=== PATIENT | female | born 1955 | race Caucasian/White ===

== ENCOUNTER 2020-06-03 12:00 | Emergency (ER) | payer OTHER ==
[~2020-06-03] VITALS: Ht 172.7 cm; Wt 97.5 kg
[2020-06-03 12:05] VITALS: Ht 172.7 cm; Wt 97.5 kg
[2020-06-03 12:23] LABS: BASOPHIL % 0.3 % (0.2-1.3); PLATELET COUNT 225 x10^3mcL (179-408); RED CELL DISTRIBUTION WIDTH 13.7 % (12.3-17.7)
[2020-06-03 12:33] LABS: CARBON DIOXIDE 28.6 mmol/L (21-32); CHLORIDE SERUM 103 mmol/L (98-107); CREATININE SERUM 0.8 mg/dL (0.6-1.0); GFR1 > 60 mL/min; GLUCOSE SERUM 118 mg/dL (74-106); POTASSIUM SERUM 3.6 mmol/L (3.5-5.1); SODIUM SERUM 137 mmol/L (136-145)
[2020-06-03 12:35] LABS: UA SPECIFIC GRAVITY 1.025 (1.005-1.035); microscopic required? YES; urine erythrocyte 3+ (NEGATIVE)
[2020-06-03 12:40] LABS: ALBUMIN 3.7 g/dL (3.4-5.0); ALKALINE PHOSPHATASE 85 U/L (46-116); ALT/SGPT 21 U/L (14-59); AMYLASE 34 U/L (25-115); AST/SGOT 17 U/L (15-37); BILIRUBIN TOTAL 0.5 mg/dL (0.20-1.00); LIPASE 70 IU/L (73-393); TOTAL PROTEIN, SERUM 7.3 g/dL (6.4-8.2)
[2020-06-03 12:51] LABS: AMPHETAMINE QUAL UR NONE DETECTED (See below)
[2020-06-03] MEDS ORDERED: ZOF4 PO (14:55)
[2020-06-03 15:28] VITALS: BP 159/87
== END 2020-06-03 15:28 | disposition home or self-care (01) ==
LOC: ED 12:00
PROVIDERS: Emergency Medicine
DX: R10.9 Unspecified abdominal pain (principal); R11.10 Vomiting, unspecified; I10 Essential (primary) hypertension; M06.9 Rheumatoid arthritis, unspecified; Z88.2 Allergy status to sulfonamides; Z87.442 Personal history of urinary calculi
CPT/HCPCS: J0696; J1885; J2270; J2405; J7030; J7060